=== PATIENT | male | born 1995 | race Caucasian/White ===

== ENCOUNTER → 2020-04-28 17:23 | Outpatient (CLI) | payer OTHER, SELFPAY ==
[2020-04-30 04:45] LABS: Chlamydia trachomatis NAA Negative (Negative); Neisseria gonorrhoeae NAA Negative (Negative)
== END ==
PROVIDERS: Visit Provider Physician Assistant
DX: Z20.2 Contact with and (suspected) exposure to infections with a predominantly sexual mode of transmission (principal)
CPT/HCPCS: 87491; 87591

== ENCOUNTER → 2020-06-19 14:41 | Outpatient (ROUT) | payer OTHER, SELFPAY ==
[2020-06-19 16:33] LABS: Urine N gonorrhoeae NOT DETECTED
[2020-06-19 17:00] LABS: Urine Chlamydia NOT DETECTED
== END ==
PROVIDERS: Visit Provider Physician Assistant
DX: Z20.2 Contact with and (suspected) exposure to infections with a predominantly sexual mode of transmission (principal)
CPT/HCPCS: 87491; 87591